=== PATIENT | male | born 1955 | race Caucasian/White ===

== ENCOUNTER 2019-06-10 12:10 | Outpatient (CLI) | payer BC, OTHER ==
[~2019-06-10 12:10] MED LIST: REGADENOSON 0.4 MG/5 ML SYRINGE ONE
== END 2019-06-10 23:59 | disposition home or self-care (01) ==
LOC: CFH 12:10
PROVIDERS: ATTEND Internal Medicine Cardiovascular Disease
DX: Z01.810 Encounter for preprocedural cardiovascular examination (principal); I21.19 ST elevation (STEMI) myocardial infarction involving other coronary artery of inferior wall; F17.200 Nicotine dependence, unspecified, uncomplicated; E78.5 Hyperlipidemia, unspecified; I73.9 Peripheral vascular disease, unspecified
CPT/HCPCS: 78452; 93017; A9502; J2785

== ENCOUNTER 2019-06-27 10:01 | Inpatient (IN) | payer BC ==
[~2019-06-27] VITALS: Ht 165.1 cm; Wt 58.5 kg
[2019-06-27 11:04] VITALS: BP 143/77
== END 2019-06-27 16:40 | disposition home or self-care (01) | DRG 301 ==
LOC: ORIP 10:40
PROVIDERS: ADMIT Surgery; ATTEND Surgery
DX: I72.4 Aneurysm of artery of lower extremity (principal); J31.0 Chronic rhinitis; F17.200 Nicotine dependence, unspecified, uncomplicated; I71.4 Abdominal aortic aneurysm, without rupture; I25.10 Atherosclerotic heart disease of native coronary artery without angina pectoris; I25.2 Old myocardial infarction; Z83.3 Family history of diabetes mellitus
CPT/HCPCS: 36415; 71046; 80053; 85025; 86850; 86900; 93005; J1644; J7120

== ENCOUNTER 2019-07-04 05:27 | Inpatient (IN) | payer BC ==
[~2019-07-04] VITALS: Ht 167.6 cm; Wt 58.0 kg
[2019-07-06 07:34] VITALS: BP 128/83
== END 2019-07-06 11:15 | disposition home or self-care (01) | DRG 254 ==
LOC: ORIP 05:27 → 4NOR 13:10 → DCLOUNGE 07-06 11:10
PROVIDERS: ADMIT Surgery; ATTEND Surgery
PROC: 04R Lower Arteries, Replacement (ICD-10-PCS; principal; 2019-07-04)
PROC: 06BP0ZZ Excision of Right Saphenous Vein, Open Approach (ICD-10-PCS; 2019-07-04)
PROC: 03HY32Z Insertion of Monitoring Device into Upper Artery, Percutaneous Approach (ICD-10-PCS; 2019-07-04)
DX: I72.4 Aneurysm of artery of lower extremity (principal); E78.5 Hyperlipidemia, unspecified; I25.10 Atherosclerotic heart disease of native coronary artery without angina pectoris; F17.200 Nicotine dependence, unspecified, uncomplicated; I25.2 Old myocardial infarction; J31.0 Chronic rhinitis; Z83.3 Family history of diabetes mellitus; I71.4 Abdominal aortic aneurysm, without rupture
CPT/HCPCS: 85347; 88304; G0378; J0690; J1100; J1644; J2250; J2405; J2704; J2710; J2720; J3010; C1760; J0330; J2370; J7120